=== PATIENT | male | born 1990 ===

== ENCOUNTER 2023-02-07 12:58 | Outpatient (AMB) | payer OTHER, SELFPAY ==
--- NOTE | 2023-02-07 14:21 | MHC.OFFWIV ---
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 Patient is active at the [employer]. Is complaining of pain in the right ear for the past few days. Pain on clenching his teeth. No fevers or chills. PFSH Social History Patient Tobacco Use Status: Never used Tobacco Physical Exam Vital Signs: Last Vital Signs Pulse 74 02/07/23 14:22 BP 128/80 02/07/23 14:22 Pulse Ox 98 02/07/23 14:22 Oxygen Delivery Method Room Air 02/07/23 14:22 BMI result Body Mass Index 26.1 Const General: cooperative and healthy appearing Nutritional Appearance: well nourished Orientation/consciousness: patient oriented x3 Limitations: no limitations HEENT Other: Right ear: Ear canal is congested. Tympanic membrane is dull. Head: Yes normal to inspection Eyes General: appearance normal, both eyes and all related structures Neck Neck: Yes normal visual inspection Chest Chest palpation & inspection: normal palpation of entire chest wall Resp Effort & Inspection: normal respiratory effort Neuro General: patient oriented x3 Assessment & Plan Assessment & Plan (1) Upper respiratory tract infection: Code(s): J06.9 - Acute upper respiratory infection, unspecified Plan Azithromycin and year drops called in. If symptoms not better to follow-up here. Medications: New hzsmzgkt-xvaudfgzo-FN 3.5-10,000-1 mg/mL-unit/mL-% 4 drps otic (ears) Q8H 10 mL 0RF azithromycin (Zithromax) take 500 mg today (day 1), then 250 mg for 4 days (days 2-5) PO 6 tabs 0RF Coding Level of Care Code Est Pt Level 3 (08364) Diagnoses Upper respiratory tract infection J06.9
[2023-02-07 14:22] VITALS: BP 128/80; PULSE 74; O2SAT 98; BMI 26.1
== END 2023-02-07 15:23 | disposition home or self-care (01) ==
PROVIDERS: Visit Provider Internal Medicine
DX: J06.9 Acute upper respiratory infection, unspecified (principal)
CPT/HCPCS: 99213